=== PATIENT | female | born 1940 | race Caucasian/White ===

== ENCOUNTER → 2021-05-30 | Day surgery (SDC) | payer MEDICARE, OTHER ==
[~2021-05-30] VITALS: Ht 160 cm; Wt 81.6 kg
[~2021-05-30] MED LIST: ASPIRIN EC81 MG PO; BIOTIN10 MG PO; LISINOPRIL10 MG PO; NORVASC 10MG TA10 MG PO; PRESERVISION A1 EAC1 PO; TOVIAZ8 MG PO; VITAMIN B-121000 MC1 PO; VITAMIN D3125 MC3 PO
[2021-05-30 10:00] LABS: MCH 28.5 pg (25.0-31.0); MCHC 31.8 g/dL (32.0-36.0); MCV 89.4 fL (78.0-100.0); MPV 9.6 fL (6.0-9.5); RBC 4.92 M/uL (4.20-5.40); RDW 13.5 % (11.5-14.0); WBC 7.1 K/uL (4.0-10.5)
[2021-05-30 10:25] LABS: ALBUMIN 3.5 g/dL (3.4-5.0); BILIRUBIN - TOTAL 0.6 mg/dL (0.2-1.0); CREATININE 1.05 mg/dL (0.51-0.95); GLOBULIN (CALCULATION) 3.8 g/dL; POTASSIUM 4.9 mmol/L (3.5-5.1); TOTAL PROTEIN 7.3 g/dL (6.4-8.2)
== END | disposition home or self-care (01) ==
LOC: FAS 07:45
PROVIDERS: Orthopaedic Surgery
DX: G56.03 Carpal tunnel syndrome, bilateral upper limbs (principal)
CPT/HCPCS: 36415; 71045; 80053; 93005; J1040; J1100; J2001; J2704; J7120